=== PATIENT | male | born 1990 | race Caucasian/White ===

== ENCOUNTER 2025-04-18 23:56 | Emergency (ER) | payer OTHER ==
[~2025-04-18] VITALS: Ht 175.3 cm; Wt 93.0 kg
[2025-04-19 00:35] LABS: PLATELET COUNT (AUTO) 219 K/uL (150-450); RED BLOOD CELL COUNT(AUTO) 5.73 MIL/uL (4.5-6.0); RED CELL DISTRIBUTION WIDTH 14.1 % (11.5-15.0); WHITE BLOOD COUNT (AUTO) 10.7 K/uL (4.3-11.0)
[2025-04-19 00:38] LABS: ERYTHROCYTE SEDIMENTATION RATE 7 MM/HR (0-15)
[2025-04-19 00:44] LABS: CALCIUM, SERUM 8.6 mg/dL (8.5-10.1); CREATININE 0.9 mg/dL (0.6-1.3); SODIUM SERUM 142.0 mmol/L (136-145); UREA NITROGEN, BLOOD 8.0 mg/dL (7-18)
[2025-04-19 00:49] LABS: ASPARTATE AMINOTRANSFERASE 25.0 U/L (15-37); TOTAL PROTEIN, SERUM 8.1 g/dL (6.4-8.2)
[2025-04-19] MEDS ORDERED: IBUP-1955 PO (01:14)
[2025-04-19] MEDS ORDERED: ACET-3102 PO (01:14)
[2025-04-19 01:37] VITALS: BP 142/84; TEMP 98.6; O2SAT 97
== END 2025-04-19 01:37 | disposition home or self-care (01) ==
LOC: ER 04-19 00:02
DX: M25.571 Pain in right ankle and joints of right foot (principal); Z79.899 Other long term (current) drug therapy
CPT/HCPCS: 36415; 73610-TC; 80053-TC; 83735-TC; 85025-TC; 85652-TC; 86140-TC; 93971-TC